=== PATIENT | female | born 1975 | race Two or more races ===

== ENCOUNTER 2023-01-29 17:12 | Emergency (ER) | payer SELFPAY ==
[~2023-01-29] VITALS: Ht 152.4 cm; Wt 74.5 kg
[2023-01-29 17:41] VITALS: BP 112/67; PULSE 93; RESP 16; TEMP 99.4
[2023-01-29 17:53] LABS: COVID AG,FIA SOURCE NASAL SWAB
[2023-01-29] MEDS ORDERED: IBUP-1554 PO (19:19)
[2023-01-29] MEDS ORDERED: GUAIFDM PO (19:19)
[2023-01-29] MEDS ORDERED: ACET-2080 PO (19:19)
[2023-01-29] MEDS ORDERED: BENZ-227 PO (19:19)
== END 2023-01-29 19:39 | disposition home or self-care (01) ==
LOC: EMS 17:20
DX: U07.1 COVID-19 (principal); J06.9 Acute upper respiratory infection, unspecified
CPT/HCPCS: 99283